=== PATIENT | male | born 1975 | race Caucasian/White ===

== ENCOUNTER 2020-09-05 12:55 | Inpatient (IN) | payer MEDICAID ==
[~2020-09-05] VITALS: Ht 175.3 cm; Wt 72.3 kg
[~2020-09-05 12:55] MED LIST: QUET200T PO
[2020-09-05 20:26] VITALS: BP 115/82
[2020-09-05] MEDS: LITHIUM CARBONATE 300 MG CAPSULE PO SCH (21:07)
[2020-09-05] MEDS: DIVALPROEX SODIUM 500 MG DR TABLET PO SCH (21:07)
[2020-09-05] MEDS: QUEtiapine FUMARATE 300 MG TABLET PO SCH (21:07)
[2020-09-06] MEDS ORDERED: CloNIDine HCL 0.1 MG TABLET PO PRN (06:30)
[2020-09-06] MEDS ORDERED: MAG HYDROX/AL HYDROX/SIMETH ES 30 ML SUSPENSION UDCUP PO PRN (06:30)
[2020-09-06] MEDS ORDERED: ONDANSETRON HCL 4 MG TABLET PO PRN (06:30)
[2020-09-06] MEDS ORDERED: BACITRACIN 28 GM OINTMENT TP PRN (06:30)
[2020-09-06] MEDS ORDERED: IBUPROFEN 600 MG TABLET PO PRN (06:30)
[2020-09-06] MEDS ORDERED: ALBUTEROL SULFATE HFA 90 MCG/PUFF 8 GM INHALER IH PRN (06:30)
[2020-09-06] MEDS ORDERED: PETROLATUM,WHITE 28 GM JELLY TP PRN (06:30)
[2020-09-06] MEDS ORDERED: MAGNESIUM HYDROXIDE SUSPENSION 30 ML UDCUP PO PRN (06:30)
[2020-09-06] MEDS ORDERED: DOCUSATE SODIUM 100 MG CAPSULE PO PRN (06:30)
[2020-09-06] MEDS ORDERED: ACETAMINOPHEN 325 MG TABLET PO PRN (06:30)
[2020-09-06] MEDS ORDERED: OMEPRAZOLE 20 MG CAPSULE PO PRN (06:30)
[2020-09-06] MEDS ORDERED: BENZOCAINE/MENTHOL LOZENGE PO PRN (06:30)
[2020-09-06] MEDS ORDERED: LOPERAMIDE HCL 2 MG CAPSULE PO PRN (06:30)
[2020-09-06] MEDS: DIVALPROEX SODIUM 500 MG DR TABLET PO SCH ×2 (08:26→17:31)
[2020-09-06] MEDS: LITHIUM CARBONATE 300 MG CAPSULE PO SCH ×2 (08:26→17:31)
[2020-09-06] MEDS: HALOPERIDOL 5 MG TABLET PO PRN (08:55)
[2020-09-06] MEDS: LORazepam 2 MG TABLET PO PRN (08:56)
[2020-09-06 16:01] VITALS: BP 104/65
[2020-09-06] MEDS: QUEtiapine FUMARATE 300 MG TABLET PO SCH (21:52)
[2020-09-07 08:22] VITALS: BP 113/83
[2020-09-07] MEDS: LITHIUM CARBONATE 300 MG CAPSULE PO SCH ×2 (08:43→16:13)
[2020-09-07] MEDS: MULTIVITAMINS WITH MINERALS, THERAPEUTIC TABLET PO SCH (08:43)
[2020-09-07] MEDS: DIVALPROEX SODIUM 500 MG DR TABLET PO SCH ×2 (08:43→16:13)
[2020-09-07] MEDS: LORazepam 2 MG TABLET PO PRN (16:13)
[2020-09-07 16:32] VITALS: BP 110/71
[2020-09-07] MEDS: QUEtiapine FUMARATE 300 MG TABLET PO SCH (22:29)
[2020-09-08 08:15] VITALS: BP 159/99
[2020-09-08] MEDS: DIVALPROEX SODIUM 500 MG DR TABLET PO SCH ×2 (10:20→16:40)
[2020-09-08] MEDS: MULTIVITAMINS WITH MINERALS, THERAPEUTIC TABLET PO SCH (10:20)
[2020-09-08] MEDS: LITHIUM CARBONATE 300 MG CAPSULE PO SCH ×2 (10:20→16:40)
[2020-09-08 16:00] VITALS: BP 103/72
[2020-09-08] MEDS: QUEtiapine FUMARATE 300 MG TABLET PO SCH (21:16)
[2020-09-09 06:45] LABS: LITHIUM 0.66 mmol/L (0.60-1.20)
[2020-09-09] MEDS: DIVALPROEX SODIUM 500 MG DR TABLET PO SCH ×2 (09:03→16:02)
[2020-09-09] MEDS: LITHIUM CARBONATE 300 MG CAPSULE PO SCH ×2 (09:03→16:02)
[2020-09-09] MEDS: MULTIVITAMINS WITH MINERALS, THERAPEUTIC TABLET PO SCH (09:03)
[2020-09-09 16:00] VITALS: BP 115/74
[2020-09-09] MEDS: LORazepam 2 MG TABLET PO PRN (16:04)
[2020-09-09 16:11] VITALS: BP 115/74
[2020-09-09] MEDS: NICOTINE 14 MG/24 HOUR PATCH TD PRN (17:17)
[2020-09-09] MEDS: QUEtiapine FUMARATE 300 MG TABLET PO SCH (20:43)
[2020-09-09] MEDS: ZOLPIDEM TARTRATE 10 MG TABLET PO PRN (20:43)
[2020-09-10 08:48] VITALS: BP 122/88
[2020-09-10] MEDS: LITHIUM CARBONATE 300 MG CAPSULE PO SCH ×2 (08:56→16:31)
[2020-09-10] MEDS: LORazepam 2 MG TABLET PO PRN ×2 (08:56→16:31)
[2020-09-10] MEDS: MULTIVITAMINS WITH MINERALS, THERAPEUTIC TABLET PO SCH (08:56)
[2020-09-10] MEDS: DIVALPROEX SODIUM 500 MG DR TABLET PO SCH ×2 (08:56→16:31)
[2020-09-10 10:44] LABS: COVID AG,FIA SOURCE NASOPHARYNGEAL
[2020-09-10 17:37] VITALS: BP 118/78
[2020-09-10] MEDS: QUEtiapine FUMARATE 300 MG TABLET PO SCH (20:22)
[2020-09-11 08:40] VITALS: BP 111/78
[2020-09-11] MEDS: LORazepam 2 MG TABLET PO PRN ×3 (08:58→20:30)
[2020-09-11] MEDS: MULTIVITAMINS WITH MINERALS, THERAPEUTIC TABLET PO SCH (08:58)
[2020-09-11] MEDS: LITHIUM CARBONATE 300 MG CAPSULE PO SCH ×2 (08:58→16:38)
[2020-09-11] MEDS: DIVALPROEX SODIUM 500 MG DR TABLET PO SCH ×2 (08:58→16:38)
[2020-09-11] MEDS: HALOPERIDOL 5 MG TABLET PO PRN (13:54)
[2020-09-11 16:11] VITALS: BP 115/80
[2020-09-11] MEDS: QUEtiapine FUMARATE 300 MG TABLET PO SCH (20:30)
[2020-09-12] MEDS: LITHIUM CARBONATE 300 MG CAPSULE PO SCH ×2 (08:52→16:25)
[2020-09-12] MEDS: HALOPERIDOL 5 MG TABLET PO PRN ×3 (08:52→20:27)
[2020-09-12] MEDS: MULTIVITAMINS WITH MINERALS, THERAPEUTIC TABLET PO SCH (08:52)
[2020-09-12] MEDS: DIVALPROEX SODIUM 500 MG DR TABLET PO SCH ×2 (08:52→16:25)
[2020-09-12] MEDS: LORazepam 2 MG TABLET PO PRN ×3 (08:52→20:27)
[2020-09-12 17:13] VITALS: BP 136/60
[2020-09-12] MEDS: QUEtiapine FUMARATE 300 MG TABLET PO SCH (20:19)
[2020-09-12] MEDS ORDERED: LORazepam 2 MG/ML VIAL IM ONE (21:15)
[2020-09-12] MEDS ORDERED: DiphenhydrAMINE HCL 50 MG/ML VIAL IM ONE (21:15)
[2020-09-12] MEDS ORDERED: HALOPERIDOL LACTATE 5 MG/ML VIAL IM ONE (21:15)
[2020-09-13] MEDS: DIVALPROEX SODIUM 500 MG DR TABLET PO SCH ×2 (08:22→16:17)
[2020-09-13] MEDS: LORazepam 2 MG TABLET PO PRN ×2 (08:22→16:17)
[2020-09-13] MEDS: LITHIUM CARBONATE 300 MG CAPSULE PO SCH ×2 (08:22→16:17)
[2020-09-13] MEDS: HALOPERIDOL 5 MG TABLET PO PRN ×2 (08:22→16:18)
[2020-09-13] MEDS: MULTIVITAMINS WITH MINERALS, THERAPEUTIC TABLET PO SCH (08:22)
[2020-09-13 08:35] VITALS: BP 126/86
[2020-09-13 17:21] VITALS: BP 127/81
[2020-09-13] MEDS: QUEtiapine FUMARATE 300 MG TABLET PO SCH (20:28)
[2020-09-14 08:21] VITALS: BP 113/75
[2020-09-14] MEDS: DIVALPROEX SODIUM 500 MG DR TABLET PO SCH ×2 (09:54→17:14)
[2020-09-14] MEDS: MULTIVITAMINS WITH MINERALS, THERAPEUTIC TABLET PO SCH (09:54)
[2020-09-14] MEDS: HALOPERIDOL 5 MG TABLET PO PRN (09:55)
[2020-09-14] MEDS: LITHIUM CARBONATE 300 MG CAPSULE PO SCH ×2 (09:55→17:14)
[2020-09-14] MEDS: LORazepam 2 MG TABLET PO PRN (09:55)
[2020-09-14 16:27] VITALS: BP 123/81
[2020-09-14] MEDS: QUEtiapine FUMARATE 300 MG TABLET PO SCH (20:37)
[2020-09-15] MEDS: ZOLPIDEM TARTRATE 10 MG TABLET PO PRN (01:41)
[2020-09-15] MEDS: MULTIVITAMINS WITH MINERALS, THERAPEUTIC TABLET PO SCH (08:23)
[2020-09-15] MEDS: DIVALPROEX SODIUM 500 MG DR TABLET PO SCH ×2 (08:23→16:06)
[2020-09-15] MEDS: LITHIUM CARBONATE 300 MG CAPSULE PO SCH ×2 (08:23→16:06)
[2020-09-15 16:25] VITALS: BP 127/89
[2020-09-15] MEDS: QUEtiapine FUMARATE 300 MG TABLET PO SCH (20:04)
[2020-09-16 08:29] VITALS: BP 138/87
[2020-09-16] MEDS: LITHIUM CARBONATE 300 MG CAPSULE PO SCH ×2 (09:36→17:09)
[2020-09-16] MEDS: HALOPERIDOL 5 MG TABLET PO PRN ×3 (09:36→21:07)
[2020-09-16] MEDS: MULTIVITAMINS WITH MINERALS, THERAPEUTIC TABLET PO SCH (09:36)
[2020-09-16] MEDS: LORazepam 2 MG TABLET PO PRN (09:36)
[2020-09-16] MEDS: DIVALPROEX SODIUM 500 MG DR TABLET PO SCH ×2 (09:36→17:09)
[2020-09-16 14:16] LABS: COVID AG,FIA SOURCE NASOPHARYNGEAL
[2020-09-16] MEDS: QUEtiapine FUMARATE 300 MG TABLET PO SCH (20:45)
[2020-09-17] MEDS: LORazepam 2 MG TABLET PO PRN (09:19)
[2020-09-17] MEDS: HALOPERIDOL 5 MG TABLET PO PRN ×3 (09:19→21:18)
[2020-09-17] MEDS: LITHIUM CARBONATE 300 MG CAPSULE PO SCH ×2 (09:19→18:42)
[2020-09-17] MEDS: MULTIVITAMINS WITH MINERALS, THERAPEUTIC TABLET PO SCH (09:19)
[2020-09-17] MEDS: DIVALPROEX SODIUM 500 MG DR TABLET PO SCH ×2 (09:19→18:42)
[2020-09-17] MEDS: QUEtiapine FUMARATE 300 MG TABLET PO SCH (21:11)
[2020-09-18] MEDS: LORazepam 2 MG TABLET PO PRN ×2 (08:05→16:33)
[2020-09-18] MEDS: MULTIVITAMINS WITH MINERALS, THERAPEUTIC TABLET PO SCH (08:05)
[2020-09-18] MEDS: HALOPERIDOL 5 MG TABLET PO PRN ×3 (08:05→20:31)
[2020-09-18] MEDS: DIVALPROEX SODIUM 500 MG DR TABLET PO SCH ×2 (08:05→16:33)
[2020-09-18] MEDS: LITHIUM CARBONATE 300 MG CAPSULE PO SCH ×2 (08:06→16:33)
[2020-09-18] MEDS: QUEtiapine FUMARATE 300 MG TABLET PO SCH (20:31)
[2020-09-19 08:06] VITALS: BP 123/73
[2020-09-19] MEDS: DIVALPROEX SODIUM 500 MG DR TABLET PO SCH ×2 (08:28→16:12)
[2020-09-19] MEDS: LORazepam 2 MG TABLET PO PRN ×2 (08:28→20:22)
[2020-09-19] MEDS: MULTIVITAMINS WITH MINERALS, THERAPEUTIC TABLET PO SCH (08:28)
[2020-09-19] MEDS: HALOPERIDOL 5 MG TABLET PO PRN ×2 (08:28→16:12)
[2020-09-19] MEDS: LITHIUM CARBONATE 300 MG CAPSULE PO SCH ×2 (08:28→16:12)
[2020-09-19] MEDS: NICOTINE 14 MG/24 HOUR PATCH TD PRN (14:33)
[2020-09-19 16:49] VITALS: BP 122/84
[2020-09-19] MEDS: QUEtiapine FUMARATE 300 MG TABLET PO SCH (20:22)
[2020-09-20] MEDS: HALOPERIDOL 5 MG TABLET PO PRN (07:47)
[2020-09-20] MEDS: LITHIUM CARBONATE 300 MG CAPSULE PO SCH (07:47)
[2020-09-20] MEDS: MULTIVITAMINS WITH MINERALS, THERAPEUTIC TABLET PO SCH (07:47)
[2020-09-20] MEDS: DIVALPROEX SODIUM 500 MG DR TABLET PO SCH (07:47)
[2020-09-20] MEDS: NICOTINE 14 MG/24 HOUR PATCH TD PRN (07:47)
[2020-09-20] MEDS: LORazepam 2 MG TABLET PO PRN (07:47)
[2020-09-20 08:07] VITALS: BP 109/76
[2020-09-20] MEDS ORDERED: QUET300T2 PO (11:08)
[2020-09-20] MEDS ORDERED: LITH300C3 PO (11:09)
[2020-09-20] MEDS ORDERED: DIVA-112 PO (11:10)
== END 2020-09-20 13:14 | disposition home or self-care (01) | DRG 885 ==
LOC: 3EC 20:24
PROVIDERS: ADMIT Psychiatry & Neurology Psychiatry; ATTEND Psychiatry & Neurology Psychiatry
DX: F25.9 Schizoaffective disorder, unspecified (principal); R45.851 Suicidal ideations; F41.9 Anxiety disorder, unspecified; Z20.822 Contact with and (suspected) exposure to COVID-19; F17.200 Nicotine dependence, unspecified, uncomplicated; F19.10 Other psychoactive substance abuse, uncomplicated; F10.10 Alcohol abuse, uncomplicated; Z91.041 Radiographic dye allergy status; Z71.6 Tobacco abuse counseling
CPT/HCPCS: 80164; 80178; J1200; J1630; J2060

== ENCOUNTER 2020-11-01 06:44 | Inpatient (IN) | payer MEDICAID ==
[~2020-11-01] VITALS: Ht 177.8 cm; Wt 68.9 kg
[~2020-11-01 06:44] MED LIST changes: +DIVA-112 PO; +LITH300C3 PO; -QUET200T PO; +QUET300T2 PO
[2020-11-01 13:56] VITALS: BP 135/99
[2020-11-01 16:13] VITALS: BP 137/95
[2020-11-02] VITALS (9 sets, daily range): BP systolic 103–135; BP diastolic 76–105
[2020-11-02] MEDS ORDERED: ONDANSETRON HCL 4 MG TABLET PO PRN (07:45)
[2020-11-02] MEDS ORDERED: NICOTINE 14 MG/24 HOUR PATCH TD PRN (07:45)
[2020-11-02] MEDS ORDERED: GuaiFENesin/D-METHORPHAN [SUGAR-FREE] 200-20MG/10 ML SYRUP UDCUP PO PRN (07:45)
[2020-11-02] MEDS ORDERED: LOPERAMIDE HCL 2 MG CAPSULE PO PRN (07:45)
[2020-11-02] MEDS ORDERED: DOCUSATE SODIUM 100 MG CAPSULE PO PRN (07:45)
[2020-11-02] MEDS ORDERED: ALBUTEROL SULFATE HFA 90 MCG/PUFF 8 GM INHALER IH PRN (07:45)
[2020-11-02] MEDS ORDERED: ACETAMINOPHEN 325 MG TABLET PO PRN (07:45)
[2020-11-02] MEDS ORDERED: MAG HYDROX/AL HYDROX/SIMETH ES 30 ML SUSPENSION UDCUP PO PRN (07:45)
[2020-11-02] MEDS ORDERED: PETROLATUM,WHITE 28 GM JELLY TP PRN (07:45)
[2020-11-02] MEDS ORDERED: MAGNESIUM HYDROXIDE SUSPENSION 30 ML UDCUP PO PRN (07:45)
[2020-11-02] MEDS ORDERED: IBUPROFEN 400 MG TABLET PO PRN (07:45)
[2020-11-02] MEDS ORDERED: CloNIDine HCL 0.1 MG TABLET PO PRN (07:45)
[2020-11-02] MEDS: LORazepam 2 MG TABLET PO PRN (08:30)
[2020-11-02] MEDS: SERTRALINE HCL 50 MG TABLET PO SCH (09:45)
[2020-11-02] MEDS ORDERED: LORazepam 2 MG/ML VIAL ONE (16:33)
[2020-11-02] MEDS ORDERED: DiphenhydrAMINE HCL 50 MG/ML VIAL ONE (16:34)
[2020-11-02] MEDS ORDERED: HALOPERIDOL LACTATE 5 MG/ML VIAL ONE (16:34)
[2020-11-02] MEDS ORDERED: HALOPERIDOL LACTATE 5 MG/ML VIAL IM ONE (16:45)
[2020-11-02] MEDS ORDERED: DiphenhydrAMINE HCL 50 MG/ML VIAL IM ONE (16:45)
[2020-11-02] MEDS ORDERED: LORazepam 2 MG/ML VIAL IM ONE (16:45)
[2020-11-02] MEDS: QUEtiapine FUMARATE 300 MG TABLET PO SCH (20:38)
[2020-11-03 03:43] VITALS: BP 122/78
[2020-11-03] MEDS: HALOPERIDOL 5 MG TABLET PO PRN (08:41)
[2020-11-03] MEDS: LORazepam 2 MG TABLET PO PRN (08:41)
[2020-11-03] MEDS: SERTRALINE HCL 50 MG TABLET PO SCH (08:41)
[2020-11-03 09:27] VITALS: BP 113/79
[2020-11-03 16:16] VITALS: BP 107/68
[2020-11-03] MEDS: QUEtiapine FUMARATE 300 MG TABLET PO SCH (20:25)
[2020-11-04] VITALS (7 sets, daily range): BP systolic 106–117; BP diastolic 69–86
[2020-11-04] MEDS: HALOPERIDOL 5 MG TABLET PO PRN ×2 (08:20→16:55)
[2020-11-04] MEDS: LORazepam 2 MG TABLET PO PRN ×2 (08:20→16:55)
[2020-11-04] MEDS: SERTRALINE HCL 50 MG TABLET PO SCH (09:10)
[2020-11-04] MEDS ORDERED: LORazepam 2 MG/ML VIAL IM ONE (11:00)
[2020-11-04] MEDS ORDERED: DiphenhydrAMINE HCL 50 MG/ML VIAL IM ONE (11:00)
[2020-11-04] MEDS ORDERED: HALOPERIDOL LACTATE 5 MG/ML VIAL IM ONE (11:00)
[2020-11-04] MEDS: QUEtiapine FUMARATE 300 MG TABLET PO SCH (20:25)
[2020-11-04] MEDS: ZOLPIDEM TARTRATE 10 MG TABLET PO PRN (21:24)
[2020-11-05] MEDS: SERTRALINE HCL 50 MG TABLET PO SCH (09:35)
[2020-11-05] MEDS: QUEtiapine FUMARATE 300 MG TABLET PO SCH (20:26)
[2020-11-05] MEDS: ZOLPIDEM TARTRATE 10 MG TABLET PO PRN (20:28)
[2020-11-06] MEDS: SERTRALINE HCL 50 MG TABLET PO SCH (08:40)
[2020-11-06 16:27] VITALS: BP 122/69
[2020-11-06] MEDS: LORazepam 2 MG TABLET PO PRN (16:37)
[2020-11-06] MEDS: HALOPERIDOL 5 MG TABLET PO PRN (16:37)
[2020-11-06] MEDS: ZOLPIDEM TARTRATE 10 MG TABLET PO PRN (20:28)
[2020-11-06] MEDS: QUEtiapine FUMARATE 200 MG TABLET PO SCH (20:28)
[2020-11-07 05:41] VITALS: BP 124/72
[2020-11-07 08:29] VITALS: BP 100/65
[2020-11-07] MEDS: HALOPERIDOL 5 MG TABLET PO PRN ×2 (08:30→16:56)
[2020-11-07] MEDS: LORazepam 2 MG TABLET PO PRN ×2 (08:30→16:56)
[2020-11-07] MEDS: SERTRALINE HCL 100 MG TABLET PO SCH (09:06)
[2020-11-07 16:19] VITALS: BP 109/66
[2020-11-07] MEDS: QUEtiapine FUMARATE 200 MG TABLET PO SCH (20:18)
[2020-11-07] MEDS: ZOLPIDEM TARTRATE 10 MG TABLET PO PRN (20:18)
[2020-11-08] MEDS: SERTRALINE HCL 100 MG TABLET PO SCH (08:14)
[2020-11-08] MEDS: HALOPERIDOL 5 MG TABLET PO PRN (17:01)
[2020-11-08] MEDS: LORazepam 2 MG TABLET PO PRN (17:02)
[2020-11-08] MEDS: QUEtiapine FUMARATE 200 MG TABLET PO SCH (20:31)
[2020-11-09] MEDS: SERTRALINE HCL 100 MG TABLET PO SCH (08:39)
[2020-11-09] MEDS: LORazepam 2 MG TABLET PO PRN ×2 (08:39→18:36)
[2020-11-09] MEDS: HALOPERIDOL 5 MG TABLET PO PRN (18:36)
[2020-11-09] MEDS: QUEtiapine FUMARATE 200 MG TABLET PO SCH (20:34)
[2020-11-10 02:18] VITALS: BP 101/62
[2020-11-10] MEDS: SERTRALINE HCL 100 MG TABLET PO SCH (08:29)
[2020-11-10] MEDS: LORazepam 2 MG TABLET PO PRN ×2 (08:29→16:20)
[2020-11-10] MEDS: HALOPERIDOL 5 MG TABLET PO PRN (16:20)
[2020-11-10] MEDS: QUEtiapine FUMARATE 200 MG TABLET PO SCH (21:12)
[2020-11-11] MEDS: SERTRALINE HCL 100 MG TABLET PO SCH (08:54)
[2020-11-11] MEDS: HALOPERIDOL 5 MG TABLET PO PRN (15:55)
[2020-11-11] MEDS: LORazepam 2 MG TABLET PO PRN (15:55)
[2020-11-11 16:24] VITALS: BP 119/81
[2020-11-11] MEDS: QUEtiapine FUMARATE 200 MG TABLET PO SCH (20:55)
[2020-11-12] MEDS: LORazepam 2 MG TABLET PO PRN ×2 (08:25→12:40)
[2020-11-12] MEDS: HALOPERIDOL 5 MG TABLET PO PRN (08:25)
[2020-11-12] MEDS: SERTRALINE HCL 100 MG TABLET PO SCH (09:00)
[2020-11-12 16:29] VITALS: BP 115/85
[2020-11-12] MEDS: QUEtiapine FUMARATE 200 MG TABLET PO SCH (20:53)
[2020-11-12] MEDS: ZOLPIDEM TARTRATE 10 MG TABLET PO PRN (20:54)
[2020-11-13] MEDS: LORazepam 2 MG TABLET PO PRN (08:10)
[2020-11-13] MEDS: SERTRALINE HCL 100 MG TABLET PO SCH (08:10)
[2020-11-13 16:34] VITALS: BP 114/82
[2020-11-13] MEDS: ZOLPIDEM TARTRATE 10 MG TABLET PO PRN (20:33)
[2020-11-13] MEDS: QUEtiapine FUMARATE 200 MG TABLET PO SCH (20:33)
[2020-11-14] MEDS: HALOPERIDOL 5 MG TABLET PO PRN (08:20)
[2020-11-14] MEDS: LORazepam 2 MG TABLET PO PRN (08:20)
[2020-11-14] MEDS: SERTRALINE HCL 100 MG TABLET PO SCH (08:38)
[2020-11-14 08:39] VITALS: BP 119/78
[2020-11-14 16:25] VITALS: BP 103/61
[2020-11-14] MEDS ORDERED: QUEtiapine FUMARATE 300 MG TABLET PO SCH (21:00)
[2020-11-15 05:53] VITALS: BP 110/76
[2020-11-15] MEDS: LORazepam 2 MG TABLET PO PRN (08:20)
[2020-11-15] MEDS: HALOPERIDOL 5 MG TABLET PO PRN (08:20)
[2020-11-15] MEDS: SERTRALINE HCL 100 MG TABLET PO SCH (08:48)
[2020-11-15] MEDS ORDERED: SERT-162 PO (14:30)
[2020-11-15 16:13] VITALS: BP 112/74
== END 2020-11-15 17:23 | disposition home or self-care (01) | DRG 750 ==
LOC: B3A 12:00
DX: F25.0 Schizoaffective disorder, bipolar type (principal); R45.851 Suicidal ideations; Z59.0 Homelessness; F41.9 Anxiety disorder, unspecified; F84.0 Autistic disorder; Y90.6 Blood alcohol level of 120-199 mg/100 ml; F10.10 Alcohol abuse, uncomplicated; F12.10 Cannabis abuse, uncomplicated; F15.10 Other stimulant abuse, uncomplicated; F17.200 Nicotine dependence, unspecified, uncomplicated; F32.9 Major depressive disorder, single episode, unspecified; Z79.899 Other long term (current) drug therapy; Z91.5 Personal history of self-harm; Z91.041 Radiographic dye allergy status
CPT/HCPCS: J1200; J1630; J2060